=== PATIENT | female | born 1960 | race Caucasian/White ===

== ENCOUNTER 2017-02-12 09:36 | Emergency (ER) | payer OTHER ==
[~2017-02-12] VITALS: Ht 152.4 cm; Wt 56.3 kg
[~2017-02-12 09:36] MED LIST: CIPR500T4 PO; DEXI60CA3 PO; ESTR0.5T9 PO; HYDR-3533 PO; PHEN1TAB49 PO; PROM25SU8 PO; ROSU20 PO
[2017-02-12 09:46] VITALS: BP 111/70; PULSE 71; RESP 18; TEMP 98.3; O2SAT 99
--- NOTE | 2017-02-12 10:14 | PD ---
HPI Chief Complaint: Complaint Time Seen by Provider: 10:06 Travel History International Travel<30 days: No Contact w/Intl Traveler<30days: No Traveled to known affect area: No History of Present Illness HPI 56-year-old female sent in by an urgent care facility for possible kidney stone. Patient has had right flank pain for the last 2 days which has been intermittent, more constant today. Pain is sharp and pressure-like, moderate. At the urgent care facility today she was given a dose of IM Toradol and states that her pain has significantly improved. She was also thought to have a UTI and was started on Bactrim. She denies fevers or chills. No nausea or vomiting. She is having pressure when she urinates. PFSH Past Medical History Cancer: No High Cholesterol: Yes Diabetes: No Diminished Hearing: No GERD: Yes Hepatitis: No Hiatal Hernia: No Thyroid Disease: No ?: Not Menopausal: Yes Ovarian Cysts: Yes Past Surgical History Appendectomy: Yes (UNSURE MAYBE AT AGE 14) Cholecystectomy: Yes Gynecologic Surgery: Yes (AGE 15 OVARIAN CYST) Hysterectomy: Yes Pacemaker: No Other Surgery: Yes (BREAST AUGMENTATION) Social History Alcohol Use: Yes Tobacco Use: No Substance Use: No Allergies-Medications (Allergen,Severity, Reaction): Coded Allergies: No Known Allergies (Unverified , 02/12/17) Reported Meds & Prescriptions Reported Meds & Active Scripts Active Tramadol (Tramadol HCl) 50 Mg Tab 50 Mg PO Q6H PRN Reported Nexium (Esomeprazole DR) 40 Mg Capdr 40 Mg PO DAILY Aspirin 81 Mg Tabdr 81 Mg PO DAILY Sulfamethoxazole-Trimethoprim 800-160 Mg Tab 1 Tab PO BID Crestor (Rosuvastatin Calcium) 10 Mg Tab 10 Mg PO DAILY Estradiol 0.5 Mg Tab 0.5 Mg PO DAILY Review of Systems Except as stated in HPI: all other systems reviewed are Neg Physical Exam Narrative GENERAL: Well-developed, well-nourished, no acute distress. SKIN: Focused skin assessment warm/dry. No rash. HEAD: Atraumatic. Normocephalic. EYES: Pupils equal and round. No scleral icterus. No injection or drainage. ENT: Mucous membranes pink and moist. NECK: Trachea midline. No JVD. CARDIOVASCULAR: Regular rate and rhythm. RESPIRATORY: No accessory muscle use. Clear to auscultation. Breath sounds equal bilaterally. GASTROINTESTINAL: Abdomen soft, non-tender, nondistended. MUSCULOSKELETAL: No obvious deformities. No clubbing. No cyanosis. No edema. No midline vertebral step-off or tenderness. Mild right CVA tenderness. No left CVA tenderness. NEUROLOGICAL: Awake and alert. No obvious cranial nerve deficits. Motor grossly within normal limits. Normal speech. PSYCHIATRIC: Appropriate mood and affect; insight and judgment normal. Data Data Last Documented VS Vital Signs Date Time Temp Pulse Resp B/P Pulse Ox O2 Delivery O2 Flow Rate FiO2 02/12/17 10:15 16 02/12/17 10:15 99 Room Air 02/12/17 09:46 98.3 71 111/70 Orders Urinalysis - C+S If Indicated (02/12/17 09:39) Complete Blood Count With Diff (02/12/17 10:11) Comprehensive Metabolic Panel (02/12/17 10:11) Lipase (02/12/17 10:11) Prothrombin Time / Inr (Pt) (02/12/17 10:11) Act Partial Throm Time (Ptt) (02/12/17 10:11) Ct Abd/Pel W/O Iv Contrast (02/12/17 10:11) Iv Access Insert/Monitor (02/12/17 10:11) Ecg Monitoring (02/12/17 10:11) Oximetry (02/12/17 10:11) Sodium Chloride 0.9% Flush (Ns Flush) (02/12/17 10:15) Urine Culture (02/12/17 10:15) Ceftriaxone Inj (Rocephin Inj) (02/12/17 11:00) Morphine Inj (Morphine Inj) (02/12/17 11:15) Labs Laboratory Tests Test 02/12/17 02/12/17 10:15 10:45 Urine Collection Type CLEAN CATCH Urine Color STRAW Urine Turbidity MOD Urine pH 6.0 Urine Specific [place] 1.009 Urine Protein 100 mg/dL Urine Glucose (UA) NEG mg/dL Urine Ketones NEG mg/dL Urine Occult Blood LARGE Urine Nitrite POS Urine Bilirubin NEG Urine Leukocyte Esterase MOD Urine RBC 50-99 /hpf Urine WBC 100-200 /hpf Urine WBC Clumps MOD Urine Squamous Epithelial 6-8 /hpf Cells Urine Amorphous Sediment FEW Urine Bacteria MANY /hpf Microscopic Urinalysis Comment CULTURE INDICATED Urine Collection Time 1015 White Blood Count 9.5 TH/MM3 Red Blood Count 4.16 MIL/MM3 Hemoglobin 13.7 GM/DL Hematocrit 40.1 % Mean Corpuscular Volume 96.5 FL Mean Corpuscular Hemoglobin 33.0 PG Mean Corpuscular Hemoglobin 34.2 % Concent Red Cell Distribution Width 11.8 % Platelet Count 164 TH/MM3 Mean Platelet Volume 8.1 FL Neutrophils (%) (Auto) 80.6 % Lymphocytes (%) (Auto) 13.7 % Monocytes (%) (Auto) 5.0 % Eosinophils (%) (Auto) 0.3 % Basophils (%) (Auto) 0.4 % Neutrophils # (Auto) 7.7 TH/MM3 Lymphocytes # (Auto) 1.3 TH/MM3 Monocytes # (Auto) 0.5 TH/MM3 Eosinophils # (Auto) 0.0 TH/MM3 Basophils # (Auto) 0.0 TH/MM3 CBC Comment DIFF FINAL Differential Comment Prothrombin Time 10.7 SEC Prothromb Time International 1.0 RATIO Ratio Activated Partial 25.2 SEC Thromboplast Time Sodium Level 144 MEQ/L Potassium Level 3.9 MEQ/L Chloride Level 107 MEQ/L Carbon Dioxide Level 28.4 MEQ/L Anion Gap 9 MEQ/L Blood Urea Nitrogen 9 MG/DL Random Glucose 92 MG/DL Calcium Level 8.7 MG/DL Albumin 3.6 GM/DL Lipase 104 U/L [facility] Medical Decision Making Medical Screen Exam Complete: Yes Emergency Medical Condition: Yes Differential Diagnosis Pyelonephritis, nephrolithiasis, ureterolithiasis, hepatobiliary disease Narrative Course Vital signs show heart rate 71, blood pressure 111/70, pulse ox 99% on room air , oral temp of 98.3F. CBC shows WBC 9.5, hemoglobin 13.7, hematocrit 40.1, platelets 164, neutrophils 80.6%. CMP is unremarkable. Lipase is 104. UA shows moderate turbidity, 100 protein, large occult blood, positive nitrites , moderate leukocyte esterase, 50-99 RBCs, 100-200 WBCs, moderate WBC clumps, many bacteria. CT abdomen pelvis: No acute disease. Patient was made aware of all findings. She is resting comfortably. She was given a dose of Rocephin IV here in the emergency department. She was given a prescription for Bactrim DS twice a day for 7 days by the urgent care facility this morning which I instructed her to fill. We will check culture and sensitivity here. She is stable for discharge home with outpatient follow-up with her primary care physician this week. She was informed on when to return to the emergency department. She verbalizes understanding and agreement with plan. Diagnosis Primary Impression: Pyelonephritis Referrals: Primary Care Physician 3 days Additional Instructions: Take Bactrim as prescribed. Stay hydrated with plenty of fluids. Return to the emergency department for worsening symptoms or any other concerns. Follow-up with your primary care physician this week. Scripts Tramadol 50 Mg Tab50 Mg PO Q6H PRN (PAIN) #15 TAB Ref 0 Prov:Praneeth Mosher MD 02/12/17 Disposition: DISCHARGE HOME Condition: Stable Praneeth Mosher MD Feb 12, 2017 10:13
[2017-02-12 10:15] VITALS: RESP 16; O2SAT 99
[2017-02-12] MEDS ORDERED: SODIUM CHLORIDE 0.9% FLUSH 10 ML FLUSH IV FLUSH PRN (10:15)
[2017-02-12] MEDS ORDERED: SULF1TAB23 PO (10:22)
[2017-02-12] MEDS ORDERED: ESTR0.5T PO (10:22)
[2017-02-12] MEDS ORDERED: NEXI40CA PO (10:22)
[2017-02-12] MEDS ORDERED: ROSU10 PO (10:22)
[2017-02-12] MEDS ORDERED: ASPI1TAB69 PO (10:22)
[2017-02-12 10:46] LABS: BLOOD, URINE LARGE (NEG); GLUCOSE,URINE NEG (NEG); KETONE, URINE NEG (NEG)
[2017-02-12 10:48] LABS: METHOD OF COLLECTION CLEAN CATCH; NITRITE,URINE POS (NEG); URINE COLOR STRAW (YELLW/STRAW)
[2017-02-12 10:51] LABS: WBC, URINE 100-200 /hpf (0-5)
[2017-02-12 10:51] LABS: AUTOMATED NEUTROPHIL # 7.7 TH/MM3 (1.8-7.7); BASOPHIL % 0.4 % (0.0-2.0); EOSINOPHIL % 0.3 % (0.0-4.0); HEMATOCRIT 40.1 % (35.0-46.0); HEMO FLAGS DIFF FINAL; LYMPH % 13.7 % (9.0-44.0); LYMPHOCYTE # 1.3 TH/MM3 (1.0-4.8); MEAN CELL VOLUME 96.5 FL (80.0-100.0); MEAN CORPUSCULAR HGB CONC 34.2 % (32.0-36.0); NEUT % 80.6 % (16.0-70.0); PLATELET COUNT 164 TH/MM3 (150-450); RED BLOOD COUNT 4.16 MIL/MM3 (4.00-5.30); RED CELL DISTRIBUTION WIDTH 11.8 % (11.6-17.2); WHITE BLOOD COUNT 9.5 TH/MM3 (4.0-11.0)
[2017-02-12 10:52] LABS: BACTERIA, URINE MANY /hpf; COMMENT (UR) CULTURE INDICATED; CULTURE IF INDICATED CULTURE INDICATED
[2017-02-12 10:57] LABS: CHLORIDE 107 MEQ/L (98-107); POTASSIUM 3.9 MEQ/L (3.5-5.1); SODIUM (NA) 144 MEQ/L (136-145)
--- NOTE | 2017-02-12 10:58 | RADHPO ---
EXAM DATE/TIME: 02/12/2017 10:20 [facility] COMPARISON: CT ABDOMEN & PELVIS W/O CONTRAST, June 16, 2015, 3:42. INDICATIONS : Right flank pain for two days. ORAL CONTRAST: No oral contrast ingested. RADIATION DOSE: 7.33 CTDIvol (mGy) MEDICAL HISTORY : Renal calculi. Gastroesophageal reflux disease. SURGICAL HISTORY : Hysterectomy. Appendectomy.Cholecystectomy. ENCOUNTER: Initial ACUITY: 2 days PAIN SCALE: 6/10 LOCATION: Right flank TECHNIQUE: Volumetric scanning of the abdomen and pelvis was performed. Using automated exposure control and ad justment of the mA and/or kV according to patient size, radiation dose was kept as low as reasonably achievable to obtain optimal diagnostic quality images. FINDINGS: LOWER LUNGS: The visualized lower lungs are clear. LIVER: Homogeneous density without lesion. There is no dilation of the biliary tree. No calcified gallston es. Status post cholecystectomy. SPLEEN: Normal size without lesion. PANCREAS: Within normal limits. KIDNEYS: Normal in size and shape. There is no mass, stone, or hydronephrosis. ADRENAL GLANDS: Within normal limits. VASCULAR: No aneurysm. Atherosclerotic calcifications of the aorta and iliac vessels are seen. BOWEL/MESENTERY: The stomach, small bowel, and colon demonstrate no acute abnormality. There is no free intraperitone al air or fluid. Status post appendectomy. ABDOMINAL WALL: Within normal limits. RETROPERITONEUM: There is no lymphadenopathy. BLADDER: No wall thickening or mass. REPRODUCTIVE: Within normal limits. INGUINAL: There is no lymphadenopathy or hernia. MUSCULOSKELETAL: Within normal limits for patient age. CONCLUSION: No acute disease. Zhou Chow MD on February 12, 2017 at 10:54 Board Certified Radiologist. This report was verified electronically.
[2017-02-12] MEDS ORDERED: cefTRIAXone INJ 1,000 MG in SODIUM CHLORIDE 0.9% INJ 100 ML IV ONE (11:00)
[2017-02-12 11:01] LABS: ANION GAP 9 MEQ/L (5-15); BICARBONATE 28.4 MEQ/L (21.0-32.0); BLOOD UREA NITROGEN 9 MG/DL (7-18)
[2017-02-12 11:03] LABS: APTT (PATIENT) 25.2 SEC (24.3-30.1); PROTHROMBIN TIME - PATIENT 10.7 SEC (9.8-11.6)
[2017-02-12 11:04] LABS: ALT (GPT) 24 U/L (10-53); AST (GOT) 16 U/L (15-37); GLOMERULAR FILTRATION RATE 78 ML/MIN (>89)
[2017-02-12 11:06] LABS: TOTAL BILIRUBIN ADULT 0.7 MG/DL (0.2-1.0)
[2017-02-12 11:07] LABS: ALKALINE PHOSPHATASE 49 U/L (45-117)
[2017-02-12] MEDS ORDERED: TRAM50TA PO (11:09)
[2017-02-12] MEDS ORDERED: MORPHINE SULFATE 4 MG/ML INJ IV PUSH ONE (11:15)
[2017-02-12 11:54] VITALS: RESP 16
[2017-02-12 12:45] VITALS: BP 117/66
== END 2017-02-12 13:00 | disposition home or self-care (01) ==
LOC: PHED 09:36
DX: N12 Tubulo-interstitial nephritis, not specified as acute or chronic (principal); B96.20 Unspecified Escherichia coli [E. coli] as the cause of diseases classified elsewhere
CPT/HCPCS: 74176; 80053; 81001; 83690; 85025; 85610; 85730; 87077; 87086; 87186; 96365; 96375; 99284; J0696; J2270